=== PATIENT | male | born 1940 | race African-American/Black ===

== ENCOUNTER 2017-05-14 03:46 | Emergency (ER) | payer MEDICARE ==
[2017-05-14] VITALS (8 sets, daily range): BP systolic 107–144; BP diastolic 43–98
[~2017-05-14] VITALS: Ht 185.4 cm; Wt 90.7 kg
[2017-05-14] MEDS ORDERED: ODEFSEY TABLET1 EACH NGT (03:59)
[2017-05-14] MEDS ORDERED: SPIRIVA18 MCG INH (03:59)
[2017-05-14] MEDS ORDERED: TAMSULOSIN HCL0.4 MG NGT (03:59)
[2017-05-14] MEDS ORDERED: METOPROLOL TART25 MG NGT (03:59)
[2017-05-14] MEDS ORDERED: ZOLOFT25 MG NGT (03:59)
[2017-05-14] MEDS ORDERED: VENTOLIN HFA18 GM INH (03:59)
[2017-05-14] MEDS ORDERED: FULL SPECTRUM0.8 MG NG (03:59)
[2017-05-14] MEDS ORDERED: DULERA 200 MCG/13 GM IH (03:59)
[2017-05-14] MEDS ORDERED: ALBUTEROL2.5 MG/3 M INH (03:59)
[2017-05-14] MEDS ORDERED: NITROGLYCERIN0.4 MG SL (03:59)
[2017-05-14] MEDS ORDERED: FUROSEMIDE40 MG NG (03:59)
[2017-05-14] MEDS ORDERED: Albuterol ud Inhalation HHN ONE (04:00)
--- NOTE | 2017-05-14 04:02 | Emergency Room Report ---
History of Present Illness General Chief Complaint: Dyspnea/Respdistress Source: Medical Record, EMS Present Illness HPI This is an unfortunate 76-year-old male with multiple medical problem. He was just noted to the [facility] less than 24 hours ago for sepsis, pneumonia, pleural effusion and positive influenza. He has an extensive stayed at [facility] prior to this. Patient presents with chief complaint of shortness of breath and hypoxia. Onset tonight. Per EMS for respiratory status was worsening in his observation was 79% on room air. Oxygen was given and brought here. Unable to get any history from this patient. Allergies: Coded Allergies: CODEINE (Verified Allergy, Unknown, 05/14/17) NSAIDS (NON-STEROIDAL ANTI-INFLAMMA (Verified Allergy, Unknown, 05/14/17) Patient History Past Medical History: see triage record, old chart reviewed Past Surgical History: other Pertinent Family History: none Social History: Denies: smoking Immunizations: other Reviewed Nursing Documentation: PMH: Agreed, PSxH: Agreed Nursing Documentation-PMH Hx COPD: Yes - Acute Resp Failure, Review of Systems Respiratory: Reports: shortness of breath All Other Systems: limited - Secondary to condition Physical Exam Vital Signs Date Time Temp Pulse Resp B/P (MAP) Pulse Ox O2 Delivery O2 Flow Rate FiO2 05/14/17 03:37 94 20 116/43 100 Non-Rebreather 12.0 vitals with hypoxia Sp02 EP Interpretation: abnormal General Appearance: moderate distress, Stupor Head: normocephalic, atraumatic Eyes: bilateral eye PERRL, bilateral eye EOMI ENT: hearing grossly normal, normal pharynx Neck: full range of motion, supple, no meningismus, other - JVD Respiratory: chest non-tender, respiratory distress, decreased breath sounds, accessory muscle use, rales Cardiovascular #1: no murmur, irregularly irregular Gastrointestinal: normal bowel sounds, non tender, no mass, no organomegaly, no bruit, non-distended Musculoskeletal: other - Pitting edema to the pelvis Psychiatric: mood/affect normal Skin: warm/dry Procedures Critical Care Time Critical Care Time Critical care is mandated in this patient who presented with respiratory distress secondary to pleural effusion. Patient require my urgent intervention to attenuate the risks of respiratory collapse which may lead to cardiovascular collapse and . Critical care time is 35 minutes excluding any reportable procedure. Critical care time included evaluation, multiple reevaluation, looking at old charts, interpreting laboratory and diagnostic data, discussing case with patient and family and consultants, and charting. Medical Decision Making Diagnostic Impression: Primary Impression: Respiratory distress Additional Impressions: Acute and chronic respiratory failure Pleural effusion UTI (urinary tract infection) Qualified Codes: N30.00 - Acute cystitis without hematuria ACS (acute coronary syndrome) Acute hypernatremia ARF (acute renal failure) Qualified Codes: N17.9 - Acute kidney failure, unspecified Anemia Qualified Codes: D64.9 - Anemia, unspecified Proteinuria Qualified Codes: R80.9 - Proteinuria, unspecified ER Course Patient presents with acute on chronic respiratory failure. He has a significant right pleural effusion. He was admitted to [facility] last week for similar complaint. Did a thoracentesis of a liter of fluid. No abscess. 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 This may explain the positive troponin. This may be also secondary to demand ischemia. Because of his hypercarbia, I place him on BiPAP. We'll repeat ABG. I discussed the case with from [facility]. Case # [id number]. Patient has a POLST in January 2017 the showed DO NOT RESUSCITATE with limited intervention. A repeat ABGs better on BiPAP, will transfer to [facility] to ICU. Laboratory Tests Test 05/14/17 04:15 05/14/17 04:20 05/14/17 04:48 Urine Color Yellow Urine Appearance Clear Urine pH 5 (4.5-8.0) Urine Specific Anderson 1.020 (1.005-1.035) Urine Protein 3+ (NEGATIVE) H Urine Glucose (UA) Negative (NEGATIVE) Urine Ketones Negative (NEGATIVE) Urine Occult Blood 1+ (NEGATIVE) H Urine Nitrite Negative (NEGATIVE) Urine Bilirubin Negative (NEGATIVE) Urine Urobilinogen Normal MG/DL (0.0-1.0) Urine Leukocyte Esterase Negative (NEGATIVE) Urine RBC 2-4 /HPF (0 - 0) H Urine WBC 0-2 /HPF (0 - 0) Urine Squamous Epithelial Cells Moderate /LPF (NONE/OCC) H Urine Bacteria Many /HPF (NONE) H White Blood Count 4.9 K/UL (4.8-10.8) Red Blood Count 2.81 M/UL (4.70-6.10) L Hemoglobin 8.4 G/DL (14.2-18.0) L Hematocrit 29.3 % (42.0-52.0) L Mean Corpuscular Volume 104 FL (80-99) H Mean Corpuscular Hemoglobin 30.0 PG (27.0-31.0) Mean Corpuscular Hemoglobin Concent 28.8 G/DL (32.0-36.0) L Red Cell Distribution Width 22.4 % (11.6-14.8) H Platelet Count 115 K/UL (150-450) L Mean Platelet Volume 8.5 FL (6.5-10.1) Neutrophils (%) (Auto) 67.7 % (45.0-75.0) Lymphocytes (%) (Auto) 22.2 % (20.0-45.0) Monocytes (%) (Auto) 7.9 % (1.0-10.0) Eosinophils (%) (Auto) 0.8 % (0.0-3.0) Basophils (%) (Auto) 1.3 % (0.0-2.0) Prothrombin Time 17.4 SEC (9.30-11.50) H Prothromb Time International Ratio 1.7 (0.9-1.1) H Activated Partial Thromboplast Time 51 SEC (23-33) H Sodium Level 155 MMOL/L (136-145) H Potassium Level 3.5 MMOL/L (3.5-5.1) Chloride Level 113 MMOL/L (98-107) H Carbon Dioxide Level 32 MMOL/L (21-32) Anion Gap 10 mmol/L (5-15) Blood Urea Nitrogen 88 mg/dL (7-18) H Creatinine 3.4 MG/DL (0.55-1.30) H Estimat Glomerular Filtration Rate mL/min (>60) Glucose Level 127 MG/DL (74-106) H Lactic Acid Level 1.40 mmol/L (0.66-2.22) Calcium Level 8.9 MG/DL (8.5-10.1) Total Bilirubin 1.0 MG/DL (0.2-1.0) Aspartate Amino Transf (AST/SGOT) 78 U/L (15-37) H Alanine Aminotransferase (ALT/SGPT) 47 U/L (12-78) Alkaline Phosphatase 101 U/L (46-116) Total Creatine Kinase 18 U/L (26-308) L Creatine Kinase MB 0.9 NG/ML (0.0-3.6) Creatine Kinase MB Relative Index 5.0 Troponin I 0.198 ng/mL (0.000-0.056) Pro-B-Type Natriuretic Peptide 8822 pg/mL (0-125) H Total Protein 7.4 G/DL (6.4-8.2) Albumin 2.0 G/DL (3.4-5.0) L Globulin 5.4 g/dL Albumin/Globulin Ratio 0.4 (1.0-2.7) L Arterial Blood pH 7.217 (7.350-7.450) Arterial Blood Partial Pressure CO2 79.1 mmHg (35.0-45.0) *H Arterial Blood Partial Pressure O2 174.2 mmHg (75.0-100.0) H Arterial Blood HCO3 31.4 mmol/L (22.0-26.0) H Arterial Blood Oxygen Saturation 98.6 % (92.0-98.0) H Arterial Blood Base Excess 2.4 Saad Test Positive Lab Results Impression labs with hypernatermia and elevated trop. EKG Diagnostic Results Rate: normal Rhythm: other - A. fib ST Segments: other - nonspecific ST changes Rhythm Strip Diag. Results EP Interpretation: yes Rate: 90 Rhythm: no PVC's, no ectopy Chest X-Ray Diagnostic Results Chest X-Ray Diagnostic Results : Chest X-Ray Ordered: Yes # of Views/Limited/Complete: 1 View Indication: Shortness of Breath EP Interpretation: Yes Interpretation: no pneumothorax, other - large rt effusion. r/o infiltrate Impression: Other - large effusion Electronically Signed by: Berto Barragan MD Last Vital Signs Date Time Temp Pulse Resp B/P (MAP) Pulse Ox O2 Delivery O2 Flow Rate FiO2 05/14/17 03:37 94 20 116/43 100 Non-Rebreather 12.0 Status: improved Disposition: XFER SHT-TRM HOSP Condition: Serious BERTO BARRAGAN M.D. May 14, 2017 04:02
[2017-05-14 04:27] LABS: BASOPHILS % (AUTO) 1.3 % (0.0-2.0); EOSINOPHILS % (AUTO) 0.8 % (0.0-3.0); HEMATOCRIT 29.3 % (42.0-52.0); HEMOGLOBIN 8.4 G/DL (14.2-18.0); LYMPHOCYTES % (AUTO) 22.2 % (20.0-45.0); MEAN CORPUSCULAR VOLUME 104 FL (80-99); MONOCYTES % (AUTO) 7.9 % (1.0-10.0); NEUTROPHILS % (AUTO) 67.7 % (45.0-75.0); PLATELET COUNT 115 K/UL (150-450); RED BLOOD COUNT 2.81 M/UL (4.70-6.10); RED CELL DISTRIBUTION WIDTH 22.4 % (11.6-14.8); WHITE BLOOD COUNT 4.9 K/UL (4.8-10.8)
[2017-05-14 04:38] LABS: ANION GAP 10 mmol/L (5-15); BLOOD UREA NITROGEN 88 mg/dL (7-18); CALCIUM 8.9 MG/DL (8.5-10.1); CARBON DIOXIDE 32 MMOL/L (21-32); CHLORIDE 113 MMOL/L (98-107); CREATININE 3.4 MG/DL (0.55-1.30); POTASSIUM 3.5 MMOL/L (3.5-5.1); SODIUM 155 MMOL/L (136-145)
[2017-05-14 04:51] LABS: ALANINE AMINOTRANSFERASE 47 U/L (12-78); ALBUMIN/GLOBULIN RATIO 0.4 (1.0-2.7); ALKALINE PHOSPHATASE 101 U/L (46-116); ASPARTATE AMINO TRANSFERASE 78 U/L (15-37); CKMB 0.9 NG/ML (0.0-3.6); CREATINE KINASE 18 U/L (26-308)
[2017-05-14 04:54] LABS: INR 1.7 (0.9-1.1)
[2017-05-14 05:12] LABS: APPEARANCE,URINE CLEAR; BILIRUBIN, URINE NEGATIVE (NEGATIVE); GLUCOSE, URINE (UA) NEGATIVE (NEGATIVE); KETONES,URINE NEGATIVE (NEGATIVE); LEUKOCYTE ESTERASE ,URINE NEGATIVE (NEGATIVE); NITRITE,URINE NEGATIVE (NEGATIVE); PH,URINE 5 (4.5-8.0); PROTEIN,URINE 3+ (NEGATIVE); UROBILINOGEN,URINE NORMAL MG/DL (0.0-1.0)
[2017-05-14 05:20] LABS: COLOR,URINE YELLOW
[2017-05-14] MEDS ORDERED: cefTRIAXone 1 GM in NS 55 ML IVPB ONE (05:30)
--- NOTE | 2017-05-14 11:15 | Diagnostic Imaging Report ---
Indication: Dyspnea Comparison: None A single view chest radiograph was obtained. Findings: Pulmonary edema demonstrated. Moderate right pleural effusion and cardiomegaly noted. Feeding tube tip projected over the stomach. PICC line tip in the SVC. IMPRESSION: CHF/interstitial edema. Moderate right pleural effusion
--- NOTE | 2017-05-14 15:40 | Cardiology Report ---
APPROVED REPORT EKG Measurement Heart [id number] Atrial fibrillation Low voltage QRS Nonspecific T wave abnormality Prolonged QT Abnormal ECG
== END 2017-05-14 12:36 | disposition short-term general hospital (02) ==
LOC: EDBD 03:46 → EMR 03:50 → CANBEDREQ 09:29 → EMR 12:36
DX: J96.21 Acute and chronic respiratory failure with hypoxia (principal); J90 Pleural effusion, not elsewhere classified; N39.0 Urinary tract infection, site not specified; N17.9 Acute kidney failure, unspecified; E87.0 Hyperosmolality and hypernatremia; R80.9 Proteinuria, unspecified; D64.9 Anemia, unspecified; Z88.5 Allergy status to narcotic agent; Z88.6 Allergy status to analgesic agent
CPT/HCPCS: 36415; 36600; 71045; 80053; 81003; 82550; 82553; 82803; 83605; 83880; 84484; 85025; 85610; 85730; 87040; 87086; 93005; 94640; 94660; 94664; 96365; 96375; 99291; J0696; J1940